=== PATIENT | female | born 1950 | race Caucasian/White ===

== ENCOUNTER → 2020-04-19 10:23 | Outpatient (CLI) | payer MEDICARE, SELFPAY ==
[2020-04-19 13:19] LABS: CRP < 2.90 mg/L (0.0-3.0)
[2020-04-20 16:08] LABS: Endomysial Antibody IgA Negative (Negative)
[2020-04-20 20:46] LABS: Immunoglobulin A 237 mg/dL (87-352); t-Transglutaminase IgA <2 U/mL (0-3)
== END ==
PROVIDERS: PCP Student in an Organized Health Care Education/Training Program; Referring Provider Internal Medicine Gastroenterology; Visit Provider Internal Medicine Gastroenterology
DX: R19.7 Diarrhea, unspecified (principal)
CPT/HCPCS: 36415; 82784; 83516; 86140; 86255

== ENCOUNTER → 2024-05-10 | Outpatient (CLI) | payer MEDICARE, SELFPAY ==
--- NOTE | 2024-05-10 11:42 | RAD_ITS ---
STUDY: X-RAY - RIGHT SHOULDER REASON FOR EXAM: Female, 73 years old. Shoulder injury. TECHNIQUE: 4 views of the right shoulder. COMPARISON: None. FINDINGS: There is mild glenohumeral arthrosis. There is mild acromioclavicular arthrosis. Normal acromion. Normal humeral head and visualized proximal humerus. The soft tissue structures are unremarkable. There is no demonstrated fracture. Normal visualized pulmonary apex. 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 Electronically Signed: Zachariah Arriaga MD at 11:59 EDT ,
== END | disposition home or self-care (01) ==
PROVIDERS: PCP Family Medicine; Referring Provider Physician Assistant; Visit Provider Physician Assistant
DX: S49.91XA Unspecified injury of right shoulder and upper arm, initial encounter (principal)
CPT/HCPCS: 73030

== ENCOUNTER → 2024-06-01 | Outpatient (CLI) | payer MEDICARE, SELFPAY ==
[2024-06-01 12:11] LABS: Absolute Neutrophil Count 2.8 X10^3/uL (2.0-7.7); Basophil# 0.08 X10^3/uL; Basophil% 1.6 % (0-1); Eosinophil# 0.15 X10^3/uL; Eosinophils% 3.1 % (0-5); Hematocrit 35.2 % (37-47); Hemoglobin 10.7 g/dL (12.0-15.0); Lymphocyte % 30.5 % (19-41); Mean Corp Hgb Conc 30.4 g/dL (32-36); Mean Corpuscular Hgb 26.6 pg (27.0-32.0); Mean Corpuscular Volume 87.6 fL (81-99); Mean Platelet Vol. 10.7 fl (6.2-12.0); Monocyte% 8.1 % (0-10); NRBC Flagged by Analyzer 0 % (0-5); Neutrophil # 2.75 X10^3/uL (2.7-7.7); Neutrophil % 56.1 % (47-70); Platelet Count 390 K/mm3 (150-450); RBC Distribution Width CV 14.9 % (11.6-14.6); RBC Distribution Width SD 48.1 fl (35.1-43.9); Red Blood Count 4.02 M/mm3 (4.2-5.4); White Blood Count 4.9 K/mm3 (4.4-11.0)
[2024-06-01 13:21] LABS: AST(SGOT) 44 U/L (15-37); Alanine Aminotransfer ALT/SGPT 30 U/L (13-56); Albumin, Serum 3.8 g/dL (3.2-5.0); Alkaline Phosphatase 31 U/L (45-117); Anion Gap 6 (5-15); BUN 35 mg/dL (7-18); BUN/Creat Ratio 31.2 RATIO (10-20); Calcium,Total 9.8 mg/dL (8.5-10.1); Chloride 106 mmol/L (98-107); Cholesterol 163 mg/dL (200); Creatinine, Serum 1.12 mg/dL (0.55-1.02); EST Glomerular Filtration Rate 51 mL/min (>60); Est Glom Filt Rate - Afr Amer 61 mL/min (>60); Globulin 3.7 g/dL (2.2-4.2); Glucose 183 mg/dL (74-106); High Density Lipoprotein 41 mg/dL; Potassium 5.1 mmol/L (3.5-5.1); Protein, Total 7.5 g/dL (6.4-8.2); Sodium Level 138 mmol/L (136-145); Triglycerides 284 mg/dL; Very Low Density Lipoprotein 57 mg/dL (5-40)
[2024-06-01 14:30] LABS: Hemoglobin A1c 7.3 % (3.8-5.6)
== END | disposition home or self-care (01) ==
LOC: BIMLAB 10:07
PROVIDERS: PCP Family Medicine; Referring Provider Family Medicine; Visit Provider Family Medicine
DX: E11.9 Type 2 diabetes mellitus without complications (principal); R23.3 Spontaneous ecchymoses
CPT/HCPCS: 36415; 80053; 80061; 83036; 85025

== ENCOUNTER → 2024-12-21 | Outpatient (CLI) | payer MEDICARE, SELFPAY ==
[2024-12-21 12:26] LABS: Absolute Lymphocyte Count 1.44 X10^3/uL (0.83-4.51); Absolute Neutrophil Count 3.7 X10^3/uL (2.0-7.7); Basophil% 1.6 % (0-1); Eosinophil# 0.28 X10^3/uL; Eosinophils% 4.6 % (0-5); Hematocrit 37.2 % (37-47); Hemoglobin 12.4 g/dL (12.0-15.0); Lymphocyte # 1.44 X10^3/ul (0.83-4.51); Lymphocyte % 23.6 % (19-41); Mean Corp Hgb Conc 33.3 g/dL (32-36); Mean Corpuscular Hgb 30.1 pg (27.0-32.0); Mean Corpuscular Volume 90.3 fL (81-99); Mean Platelet Vol. 11.1 fl (6.2-12.0); Monocyte# 0.46 X10^3/uL; Monocyte% 7.5 % (0-10); NRBC Flagged by Analyzer 0 % (0-5); Neutrophil # 3.74 X10^3/uL (2.7-7.7); Neutrophil % 61.4 % (47-70); Platelet Count 357 K/mm3 (150-450); RBC Distribution Width CV 13.6 % (11.6-14.6); RBC Distribution Width SD 44.5 fl (35.1-43.9); Red Blood Count 4.12 M/mm3 (4.2-5.4); White Blood Count 6.1 K/mm3 (4.4-11.0)
[2024-12-21 12:54] LABS: ALB/GLOB Ratio 1.6 RATIO (0.9-2.4); AST(SGOT) 43 U/L (<=31); Alanine Aminotransfer ALT/SGPT 30 U/L (<=34); Albumin, Serum 4.6 g/dL (3.4-4.8); Alkaline Phosphatase 45 U/L (35-104); Anion Gap 12 (5-15); BUN 24 mg/dL (4-19); Calcium,Total 9.8 mg/dL (7.6-11.0); Carbon Dioxide 25.1 mmol/L (21.0-32.0); Chloride 100 mmol/L (98-108); Cholesterol 196 mg/dL (<=200); Creatinine, Serum 0.86 mg/dL (0.70-1.20); EST Glomerular Filtration Rate 71 (>60); Globulin 2.9 g/dL (2.2-4.2); Glucose 202 mg/dL (70-99); High Density Lipoprotein 32 mg/dL; Low Density Lipoprotein Calc. 45 mg/dL; Potassium 4.8 mmol/L (3.3-5.1); Protein, Total 7.5 g/dL (5.9-8.4); Sodium Level 137 mmol/L (133-145); Total Bilirubin 0.16 mg/dL (0.00-1.30); Triglycerides 595 mg/dL; Very Low Density Lipoprotein 119 mg/dL (5-40); cholesterol:hdl ratio screen 6.09
== END | disposition home or self-care (01) ==
LOC: BIMLAB 09:36
PROVIDERS: PCP Family Medicine; Referring Provider Family Medicine; Visit Provider Family Medicine
DX: E11.9 Type 2 diabetes mellitus without complications (principal); G25.81 Restless legs syndrome
CPT/HCPCS: 36415; 80053; 80061; 85025

== ENCOUNTER → 2025-01-07 | Outpatient (CLI) | payer MEDICARE, SELFPAY ==
[2025-01-07 16:55] LABS: Ferritin 101 ng/mL (22-378)
== END | disposition home or self-care (01) ==
LOC: LAB 14:14
PROVIDERS: PCP Family Medicine; Referring Provider Internal Medicine Pulmonary Disease; Visit Provider Internal Medicine Pulmonary Disease
DX: G25.81 Restless legs syndrome (principal)
CPT/HCPCS: 36415; 82728